=== PATIENT | female | born 1940 | race Caucasian/White ===

== ENCOUNTER → 2016-11-09 | Day surgery (SDC) | payer MEDICARE ==
[~2016-11-09] VITALS: Ht 160 cm; Wt 68.0 kg
[~2016-11-09] MED LIST: ACIPHEX20 MG PO; AMITIZA24 MCG PO; AMITIZA8 MCG PO; AMLODIPINE BES2.5 MG PO; AMOXICILLIN500 MG PO; ARICEPT ODT5 MG PO; ARICEPT5 M1 PO; ARICEPT5 MG PO; ASPIR 8181 MG PO; ASPIRIN81 M1 PO; ATORVASTATIN CA40 M1 PO; CIPRO XR500 MG PO; CIPRO250 MG PO; CIPRO500 MG PO; CIPROFLOXACIN500 MG PO; CLARITIN10 MG PO; CLOPIDOGREL75 MG PO; COLACE100 MG PO; CRESTOR20 MG PO; DIOVAN160 M1 PO; IMDUR SA30 MG PO; IMDUR SA60 M1 PO; LEVOTHYROXIN0.075 MG PO; LEVOTHYROXINE0.05 MG PO; LOPRESSOR25 MG PO; Lopressor25 MG PO; NAMENDA1 TAB PO; NAMENDA10 MG PO; NORVASC2.5 MG PO; OSCAL,OYSTER S500 MG PO; OYSTER SHELL C500 M2 PO; OYSTER SHELL CA1 T10 PO; PERCOCET 325 MG1 TA2 PO; PLAVIX75 MG PO; PRILOSEC20 MG PO; SYNTHROID,LEVO50 MCG PO; ULTRAM50 MG PO; VIBRAMYCIN100 MG PO; VITAMIN D50000 I2 PO; ZITHROMAX Z PA250 MG PO; ZOFRAN ODT4 MG PO; ZOFRAN4 MG PO; [UNRECOGNIZED DRUG - REMARK]
--- NOTE | ~2016-11-09 | PROC NOTE ---
[place], [place] PROCEDURE NOTE NAME: KENDRA RICE [facility] #: [id number] UNIT #: [id number] ROOM: DOCTOR: HILTON JENKINS MD BIRTHDATE: [birth year] DOS: 11/09/2016 PREOPERATIVE DIAGNOSES: Left lower quadrant pain, constipation. POSTOPERATIVE DIAGNOSIS: Sigmoid diverticulosis. PROCEDURE: Flexible sigmoidoscopy. ENDOSCOPIST: Hilton Jenkins MD ANESTHESIA: MAC. GLOBAL IMPLEMENTATION MANAGER: MS3. INDICATIONS: This is a 76-year-old lady who has been having left lower quadrant pain and constipation for approximately 3 weeks. Despite being on a course or MiraLax, the constipation has not been relieved in a significant that manner. It was decided to take the patient to the endoscopy suite for colonoscopy. The procedure and its complications were explained to the patient's son in detail preoperatively. Complications that were discussed included but were not limited to, bleeding, colon perforation, and prolonged pain. He agreed for her to proceed. DESCRIPTION OF PROCEDURE: After identifying the patient, the patient was brought to the endoscopy suite and placed in the left lateral position. After time-out procedure was called, IV sedation was administered by the anesthesia team and a digital rectal exam was performed, which was within normal limits. At this point, an adult colonoscope was introduced into the anal canal and advanced sequentially into the rectum and to the sigmoid colon approximately up to 20-25 cm from the anal verge. Despite multiple attempts, the colonoscope could not be advanced beyond this point. At this area though I did see some diverticula, but no evidence of any malignancy or any kind of masses or strictures that could be visualized between the anal canal and the 20 cm from the anal verge area in the sigmoid colon. Also, of note is that during the procedure, the patient did have a bout of emesis for which she needed suctioning and a Trendelenburg position that was handled by the anesthesia team and therefore, I could not place the patient in supine position to continue with the examination. At this point, the scope was withdrawn and the patient was taken to the recovery room in stable fashion. There were no complications from the colonoscopy/sigmoidoscopy procedure. The patient tolerated the procedure well. Based on these findings, the patient is going to need a CAT scan with rectal and IV contrast in order to better delineate the anatomy. I spoke with the patient's son in detail about this and he agrees to proceed. I will discuss these findings with the patient's son and the patient herself in my office in a couple of weeks. [place], [place] PROCEDURE NOTE NAME: KENDRA RICE UNIT #: [id number] ROOM: DOCTOR: HILTON JENKINS MD BIRTHDATE: [birth year] Hilton Jenkins MD CM:PROCNOTE:PROCEDURE NOTE [id number] HILTON JENKINS MD
[2016-11-09 07:24] LABS: BASO # 0.1 10*3/uL (0.0-0.1); BASO % 0.9 % (0.0-1.0); EOS # 0.2 10*3/uL (0.0-0.4); EOS % 3.2 % (1.0-4.0); HEMOGLOBIN 13.1 g/dl (12.0-16.0); LYMPH # 2.1 10*3/uL (1.3-4.4); LYMPH % 27.8 % (27.0-41.0); MEAN CELL VOLUME 90.9 fl (81.0-99.0); MEAN CORPUSCULAR HGB 30.5 pg (27.0-31.0); MEAN CORPUSCULAR HGB CONC 33.6 g/dl (33.0-37.0); MEAN PLATELET VOLUME 9.5 fl (9.6-12.3); MONO # 0.5 10*3/uL (0.1-1.0); NEUT # 4.5 10*3/uL (2.3-7.9); NEUT % 60.7 % (47.0-73.0); PLATELET COUNT AUTOMATED 238 10*3/uL (130-400); RED BLOOD COUNT 4.29 10*6/uL (4.10-5.10); RED CELL DISTRI WIDTH 12.7 % (0-14.5); WHITE BLOOD COUNT 7.5 10*3/uL (4.8-10.8)
[2016-11-09 07:36] LABS: POTASSIUM 3.8 mmol/L (3.5-5.1)
[2016-11-09 08:50] VITALS: BP 100/68
[2016-11-09 10:40] VITALS: BP 118/56
[2016-11-09 10:55] VITALS: BP 94/66
[2016-11-09 11:10] VITALS: BP 149/69
== END | disposition home or self-care (01) ==
LOC: SDC 03:06
PROVIDERS: Surgery
DX: K57.30 Diverticulosis of large intestine without perforation or abscess without bleeding (principal); I10 Essential (primary) hypertension; I25.10 Atherosclerotic heart disease of native coronary artery without angina pectoris; Z86.73 Personal history of transient ischemic attack (TIA), and cerebral infarction without residual deficits; F41.9 Anxiety disorder, unspecified; E03.9 Hypothyroidism, unspecified; K21.9 Gastro-esophageal reflux disease without esophagitis; Z95.818 Presence of other cardiac implants and grafts; Z95.1 Presence of aortocoronary bypass graft

== ENCOUNTER → 2016-11-15 | Outpatient (CLI) | payer MEDICARE | END | disposition home or self-care (01) | LOC: CT 12:59 | DX: K56.69 Other intestinal obstruction (principal); K59.00 Constipation, unspecified; K57.30 Diverticulosis of large intestine without perforation or abscess without bleeding; R10.9 Unspecified abdominal pain; R10.31 Right lower quadrant pain; R19.7 Diarrhea, unspecified; Z90.49 Acquired absence of other specified parts of digestive tract ==

== ENCOUNTER 2017-05-07 19:36 | Inpatient (IN) | payer MEDICARE ==
[~2017-05-07] VITALS: Ht 157.4 cm; Wt 67.3 kg
[2017-05-07 20:03] VITALS: BP 125/61
[2017-05-07 20:25] LABS: BILIRUBIN NEGATIVE (NEGATIVE); BLOOD 2+ (NEGATIVE); CLARITY CLEAR (CLEAR); COLOR YELLOW (YELLOW); GLUCOSE NEGATIVE (NEGATIVE); KETONE NEGATIVE (NEGATIVE); LEUKO ESTERASE 1+ (NEGATIVE); NITRITE NEGATIVE (NEGATIVE); PH 5.5 (5.0-9.0); PROTEIN NEGATIVE (NEGATIVE); SPECIFIC GRAVITY <= 1.005 (1.005-1.030); UROBILINOGEN 0.2 E.U./dl (0.2-1.0)
[2017-05-07 20:39] LABS: BACTERIA TRACE; URINE REFLEX COMMENT YES (NO)
[2017-05-07 21:07] LABS: BASO # 0.1 10*3/uL (0.0-0.1); BASO % 0.7 % (0.0-1.0); EOS # 0.3 10*3/uL (0.0-0.4); EOS % 4.2 % (1.0-4.0); HEMATOCRIT 33.8 % (37.0-47.0); HEMOGLOBIN 11.4 g/dl (12.0-16.0); LYMPH # 2.7 10*3/uL (1.3-4.4); LYMPH % 32.8 % (27.0-41.0); MEAN CELL VOLUME 89.9 fl (81.0-99.0); MEAN CORPUSCULAR HGB 30.3 pg (27.0-31.0); MEAN CORPUSCULAR HGB CONC 33.7 g/dl (33.0-37.0); MEAN PLATELET VOLUME 9.5 fl (9.6-12.3); MONO # 0.7 10*3/uL (0.1-1.0); NEUT # 4.4 10*3/uL (2.3-7.9); NEUT % 54.2 % (47.0-73.0); PLATELET COUNT AUTOMATED 193 10*3/uL (130-400); RED BLOOD COUNT 3.76 10*6/uL (4.10-5.10); RED CELL DISTRI WIDTH 13.2 % (0-14.5); WHITE BLOOD COUNT 8.1 10*3/uL (4.8-10.8)
[2017-05-07 21:21] LABS: ALBUMIN 3.4 gm/dl (3.1-4.5); ALKALINE PHOSPHATASE 61 U/L (45-117); BILIRUBIN, TOTAL 0.4 mg/dl (0.2-1.0); BUN 29 mg/dl (7-24); CARBON DIOXIDE 27 mmol/L (21-32); CHLORIDE 101 mmol/L (98-107); EST GLOM FILT AFRICAN AMERICAN 41 ml/min; GLUCOSE 125 mg/dL (65-99); MAGNESIUM 2.2 mg/dL (1.5-2.1); POTASSIUM 3.6 mmol/L (3.5-5.1); SGOT/AST 14 IU/L (3-35); SGPT/ALT 18 U/L (12-78); SODIUM 140 mmol/L (136-145); TOTAL PROTEIN 6.5 gm/dL (6.4-8.2)
[2017-05-07 21:22] LABS: C-REACTIVE PROTEIN < 0.29 MG/DL (0-0.3)
[2017-05-08 00:50] VITALS: BP 135/67
[2017-05-08 01:00] VITALS: BP 135/67
[2017-05-08 06:41] LABS: BASO # 0.1 10*3/uL (0.0-0.1); BASO % 0.7 % (0.0-1.0); EOS # 0.3 10*3/uL (0.0-0.4); EOS % 3.6 % (1.0-4.0); HEMATOCRIT 33.7 % (37.0-47.0); HEMOGLOBIN 11.3 g/dl (12.0-16.0); LYMPH # 2.4 10*3/uL (1.3-4.4); LYMPH % 35.4 % (27.0-41.0); MEAN CELL VOLUME 91.1 fl (81.0-99.0); MEAN CORPUSCULAR HGB 30.5 pg (27.0-31.0); MEAN CORPUSCULAR HGB CONC 33.5 g/dl (33.0-37.0); MEAN PLATELET VOLUME 9.6 fl (9.6-12.3); MONO # 0.6 10*3/uL (0.1-1.0); NEUT # 3.5 10*3/uL (2.3-7.9); NEUT % 51.2 % (47.0-73.0); PLATELET COUNT AUTOMATED 182 10*3/uL (130-400); RED CELL DISTRI WIDTH 13.2 % (0-14.5); WHITE BLOOD COUNT 6.9 10*3/uL (4.8-10.8)
[2017-05-08 07:18] LABS: FREE T4 0.96 ng/dl (0.76-1.46); MAGNESIUM 2.7 mg/dL (1.5-2.1); POTASSIUM 3.6 mmol/L (3.5-5.1)
[2017-05-08 07:24] LABS: THYROID STIM HORMONE (HS) 3.48 uIU/ml (0.358-4.75)
[2017-05-08 07:50] LABS: VITAMIN D, 25-HYDROXY 36.8 ng/mL (30-100)
[2017-05-08 07:51] LABS: FOLIC ACID 13.9 ng/mL (>5.38)
[2017-05-08 07:55] LABS: PROTHROMBIN TIME 10.8 SECONDS (9.0-12.4)
[2017-05-08 08:00] VITALS: BP 110/60
[2017-05-08 12:00] VITALS: BP 109/55
[2017-05-08 16:00] VITALS: BP 109/69
[2017-05-08 20:00] VITALS: BP 119/56
[2017-05-09] VITALS: BP 118/50
[2017-05-09 07:10] LABS: BASO # 0.1 10*3/uL (0.0-0.1); BASO % 0.9 % (0.0-1.0); EOS # 0.3 10*3/uL (0.0-0.4); EOS % 5.7 % (1.0-4.0); HEMATOCRIT 37.5 % (37.0-47.0); HEMOGLOBIN 12.3 g/dl (12.0-16.0); LYMPH # 1.8 10*3/uL (1.3-4.4); LYMPH % 30.4 % (27.0-41.0); MEAN CORPUSCULAR HGB 29.9 pg (27.0-31.0); MEAN CORPUSCULAR HGB CONC 32.8 g/dl (33.0-37.0); MEAN PLATELET VOLUME 9.5 fl (9.6-12.3); MONO # 0.4 10*3/uL (0.1-1.0); MONO % 7.4 % (3.0-9.0); NEUT # 3.2 10*3/uL (2.3-7.9); NEUT % 55.3 % (47.0-73.0); PLATELET COUNT AUTOMATED 173 10*3/uL (130-400); RED BLOOD COUNT 4.12 10*6/uL (4.10-5.10); RED CELL DISTRI WIDTH 13.3 % (0-14.5); WHITE BLOOD COUNT 5.8 10*3/uL (4.8-10.8)
[2017-05-09 07:44] LABS: POTASSIUM 3.8 mmol/L (3.5-5.1)
[2017-05-09 08:00] VITALS: BP 101/52
[2017-05-09 12:00] VITALS: BP 114/53
[2017-05-09 16:00] VITALS: BP 140/62
[2017-05-09 20:00] VITALS: BP 120/75
[2017-05-10] VITALS: BP 122/72
[2017-05-10 06:47] LABS: BASO % 0.6 % (0.0-1.0); EOS # 0.3 10*3/uL (0.0-0.4); HEMATOCRIT 34.8 % (37.0-47.0); HEMOGLOBIN 11.7 g/dl (12.0-16.0); LYMPH # 2.2 10*3/uL (1.3-4.4); LYMPH % 35.3 % (27.0-41.0); MEAN CELL VOLUME 91.6 fl (81.0-99.0); MEAN CORPUSCULAR HGB 30.8 pg (27.0-31.0); MEAN CORPUSCULAR HGB CONC 33.6 g/dl (33.0-37.0); MEAN PLATELET VOLUME 9.6 fl (9.6-12.3); MONO # 0.5 10*3/uL (0.1-1.0); MONO % 8.3 % (3.0-9.0); NEUT # 3.2 10*3/uL (2.3-7.9); NEUT % 50.6 % (47.0-73.0); PLATELET COUNT AUTOMATED 182 10*3/uL (130-400); RED CELL DISTRI WIDTH 13.2 % (0-14.5); WHITE BLOOD COUNT 6.2 10*3/uL (4.8-10.8)
[2017-05-10 08:00] VITALS: BP 149/75
[2017-05-10 12:00] VITALS: BP 117/82
[2017-05-10 16:00] VITALS: BP 124/67
[2017-05-10 20:00] VITALS: BP 165/64
[2017-05-11] VITALS: BP 111/54
[2017-05-11 08:00] VITALS: BP 119/67
== END 2017-05-11 11:37 | disposition other institution (70) | DRG 689 ==
LOC: ED 19:36 → EDHOLD 05-08 00:21 → 4E 05-08 00:21
PROVIDERS: Emergency Medicine Emergency Medical Services; Family Medicine; Hospitalist
DX: N30.01 Acute cystitis with hematuria (principal); N17.0 Acute kidney failure with tubular necrosis; F03.91 Unspecified dementia, unspecified severity, with behavioral disturbance; N18.3 Chronic kidney disease, stage 3 (moderate); D64.9 Anemia, unspecified; R73.9 Hyperglycemia, unspecified; E83.41 Hypermagnesemia; E86.0 Dehydration; E74.39 Other disorders of intestinal carbohydrate absorption; I12.9 Hypertensive chronic kidney disease with stage 1 through stage 4 chronic kidney disease, or unspecified chronic kidney disease; K59.00 Constipation, unspecified; I25.10 Atherosclerotic heart disease of native coronary artery without angina pectoris; E78.5 Hyperlipidemia, unspecified; I25.2 Old myocardial infarction; E03.9 Hypothyroidism, unspecified; M06.9 Rheumatoid arthritis, unspecified; Z90.49 Acquired absence of other specified parts of digestive tract; Z90.710 Acquired absence of both cervix and uterus; Z95.1 Presence of aortocoronary bypass graft; Z95.5 Presence of coronary angioplasty implant and graft; Z91.041 Radiographic dye allergy status; Z91.013 Allergy to seafood; Z81.1 Family history of alcohol abuse and dependence; Z81.2 Family history of tobacco abuse and dependence; Z82.49 Family history of ischemic heart disease and other diseases of the circulatory system; Z82.3 Family history of stroke

== ENCOUNTER 2017-07-02 12:19 | Emergency (ER) | payer MEDICARE ==
[~2017-07-02] VITALS: Wt 68.0 kg
[2017-07-02 13:32] LABS: BASO # 0.1 10*3/uL (0.0-0.1); BASO % 0.6 % (0.0-1.0); EOS # 0.3 10*3/uL (0.0-0.4); EOS % 3.1 % (1.0-4.0); HEMATOCRIT 37.5 % (37.0-47.0); HEMOGLOBIN 12.5 g/dl (12.0-16.0); LYMPH # 2.8 10*3/uL (1.3-4.4); MEAN CELL VOLUME 90.4 fl (81.0-99.0); MEAN CORPUSCULAR HGB 30.1 pg (27.0-31.0); MEAN CORPUSCULAR HGB CONC 33.3 g/dl (33.0-37.0); MEAN PLATELET VOLUME 9.2 fl (9.6-12.3); MONO # 0.8 10*3/uL (0.1-1.0); MONO % 7.3 % (3.0-9.0); NEUT # 6.8 10*3/uL (2.3-7.9); NEUT % 62.7 % (47.0-73.0); PLATELET COUNT AUTOMATED 224 10*3/uL (130-400); RED BLOOD COUNT 4.15 10*6/uL (4.10-5.10); RED CELL DISTRI WIDTH 13.1 % (0-14.5); WHITE BLOOD COUNT 10.8 10*3/uL (4.8-10.8)
[2017-07-02 13:50] LABS: ALBUMIN 3.5 gm/dl (3.1-4.5); BUN 19 mg/dl (7-24); CHLORIDE 98 mmol/L (98-107); MAGNESIUM 2.2 mg/dL (1.5-2.1); POTASSIUM 4.4 mmol/L (3.5-5.1); SGOT/AST 15 IU/L (3-35); SGPT/ALT 21 U/L (12-78); SODIUM 136 mmol/L (136-145); TOTAL PROTEIN 6.9 gm/dL (6.4-8.2)
[2017-07-02 13:53] LABS: ALKALINE PHOSPHATASE 67 U/L (45-117); CKMB 1.2 ng/ml (0.5-3.6); CPK 68 U/L (26-192); TROPONIN I < 0.015 ng/ml (<0.045)
[2017-07-02] MEDS ORDERED: PREDNISONE10 MG PO (14:07)
[2017-07-02] MEDS ORDERED: DOXYCYCLINE100 M3 PO (14:07)
[2017-07-02] MEDS ORDERED: PROVENTIL HFA6.7 GM INH (14:07)
== END 2017-07-02 14:32 | disposition home or self-care (01) ==
LOC: ED 12:19
PROVIDERS: Internal Medicine
DX: J20.9 Acute bronchitis, unspecified (principal); I12.9 Hypertensive chronic kidney disease with stage 1 through stage 4 chronic kidney disease, or unspecified chronic kidney disease; N18.3 Chronic kidney disease, stage 3 (moderate); E78.5 Hyperlipidemia, unspecified; I25.2 Old myocardial infarction; E03.9 Hypothyroidism, unspecified; M06.9 Rheumatoid arthritis, unspecified; Z91.041 Radiographic dye allergy status; Z91.013 Allergy to seafood; Z79.82 Long term (current) use of aspirin; Z79.899 Other long term (current) drug therapy

== ENCOUNTER 2017-07-05 11:31 | Inpatient (IN) | payer MEDICARE ==
[~2017-07-05] VITALS: Ht 162.5 cm; Wt 63.7 kg
--- NOTE | ~2017-07-05 | CON ---
[place], [place] REPORT OF CONSULTATION NAME: [facility] [id number] UNIT #: [id number] ROOM: 408 DOCTOR: MARTHA RIVERA MD BIRTHDATE: [birth year] DOS: 07/06/2017 HISTORY OF PRESENT ILLNESS: This is a 77-year-old -Congol[place] woman with a history of coronary artery disease. A long time ago, she had coronary artery bypass graft surgery done and Dr. Smith did a heart catheterization in 11/2014, which demonstrated a totally occluded LAD with an ectatic YOU graft to this artery: A circumflex had 95% of the total occlusion with a patent vein graft to one of its branches. The RCA graft was totally occluded, but the stent in the RCA was patent with only 30% stenosis, i.e., RCA was patent. She had an echocardiogram. At that time, LV ejection fraction was 65%. She had an echocardiogram in this hospital last year, which showed an LV ejection fraction of 70%. She has essential hypertension, hyperlipidemia, hypothyroidism and chronic anemia and rheumatoid arthritis. She has some degree of dementia and carries a diagnosis of stage 3 chronic kidney disease. She has had appendectomy, tonsillectomy and adenoidectomy in the remote past. She lives at home with her son and has difficulty walking because of hip pain, but does ambulate reasonably well. She had anterior chest pain before she came to the hospital. She is unable to give me any details about it. She does not know what she was doing at that time, but she did not sweat nor with she short of breath with it. She did not pass out. She does not have any chest pain now nor does she have any breathing problems. HOME MEDICATIONS: Include amlodipine 2.5 mg daily, aspirin 81 daily, clopidogrel 75 mg daily, doxycycline 100 mg b.i.d., levothyroxine 75 mcg daily, metoprolol tartrate 25 mg daily, prednisone 10 mg daily and 20 daily and valsartan 160 mg. SOCIAL HISTORY: She does not smoke nor does she drink alcoholic beverages. PHYSICAL EXAMINATION: GENERAL: Reveals the patient who is alert. She converses reasonably well. She is very comfortable. There is no jaundice or cyanosis. There is no thyromegaly or finger clubbing. VITAL SIGNS: Pulse is 52 and regular, blood pressure 117/73. NECK: Normal JVP. AJR is negative. There is no carotid bruit. HEART: There is no cardiomegaly. Auscultation did not reveal any murmurs or rubs. She had no edema in the lower extremities. Pedal pulses were easily appreciated. RESPIRATORY: She was not tachypneic and now the auscultation revealed a few rhonchi in the right lower zone. There was no chest wall tenderness. ABDOMEN: Supple, nontender. No bruit was present and liver was not enlarged. IMAGING: Two ECGs have shown normal sinus rhythm and a normal pattern. Monitor has shown sinus bradycardia with rate sometimes in the high 40s, but mostly in the 50s. LABORATORY DATA: Troponin I level has been less than 0.015. Hemoglobin 13.2 g/dL. Sodium 136, potassium 4.4, magnesium 2.2. [place], [place] REPORT OF CONSULTATION NAME: KENDRA RICE UNIT #: [id number] ROOM: 408 DOCTOR: MARTHA RIVERA MD BIRTHDATE: [birth year] IMPRESSION: This patient with known coronary artery disease and coronary artery bypass graft surgery, has normal LV systolic function. She had chest pain and has ruled out for acute myocardial infarction and the nature of this pain is not clear because the patient is unable to give much information. I walked her in the hallway for quite a distance and she had no breathing difficulty and did not have any chest pain or pressure or jaw discomfort, but her right hip was painful. I did my recommendation. I do not feel she needs any cardiac workup and she may be discharged home. I thank you on behalf of Dr. Smith. MARTHA RIVERA MD CM:CONSTR:REPORT OF CONSULTATION 2 07/07/17 0138 interface
[~2017-07-05 11:31] MED LIST changes: +DOXYCYCLINE100 M3 PO; +PREDNISONE10 MG PO; +PROVENTIL HFA6.7 GM INH
[2017-07-05 11:43] VITALS: BP 177/81
[2017-07-05 12:12] LABS: BASO % 0.1 % (0.0-1.0); HEMATOCRIT 39.4 % (37.0-47.0); HEMOGLOBIN 13.2 g/dl (12.0-16.0); LYMPH # 1.4 10*3/uL (1.3-4.4); LYMPH % 9.1 % (27.0-41.0); MEAN CELL VOLUME 89.3 fl (81.0-99.0); MEAN CORPUSCULAR HGB 29.9 pg (27.0-31.0); MEAN CORPUSCULAR HGB CONC 33.5 g/dl (33.0-37.0); MEAN PLATELET VOLUME 9.2 fl (9.6-12.3); MONO # 0.9 10*3/uL (0.1-1.0); MONO % 5.6 % (3.0-9.0); NEUT % 84.3 % (47.0-73.0); PLATELET COUNT AUTOMATED 257 10*3/uL (130-400); RED BLOOD COUNT 4.41 10*6/uL (4.10-5.10); WHITE BLOOD COUNT 15.4 10*3/uL (4.8-10.8)
[2017-07-05 12:20] LABS: ACT PARTIAL THROMBO TIME 23.5 SECONDS (20.8-31.5)
[2017-07-05 12:28] LABS: ALBUMIN 3.8 gm/dl (3.1-4.5); ALKALINE PHOSPHATASE 61 U/L (45-117); BUN 24 mg/dl (7-24); CHLORIDE 100 mmol/L (98-107); CREATININE 1.12 mg/dL (0.55-1.02); MAGNESIUM 2.5 mg/dL (1.5-2.1); POTASSIUM 4.5 mmol/L (3.5-5.1); SGOT/AST 22 IU/L (3-35); SGPT/ALT 21 U/L (12-78); SODIUM 131 mmol/L (136-145); TOTAL PROTEIN 7.6 gm/dL (6.4-8.2)
[2017-07-05 12:31] LABS: TROPONIN I < 0.015 ng/ml (<0.045)
[2017-07-05 12:48] VITALS: BP 134/68
[2017-07-05 13:25] VITALS: BP 118/69
[2017-07-05 16:00] VITALS: BP 156/70
[2017-07-05 20:00] VITALS: BP 99/77
[2017-07-06] VITALS: BP 117/73
[2017-07-06 07:06] LABS: BASO % 0.2 % (0.0-1.0); EOS # 0.2 10*3/uL (0.0-0.4); EOS % 1.8 % (1.0-4.0); HEMATOCRIT 35.5 % (37.0-47.0); HEMOGLOBIN 12.1 g/dl (12.0-16.0); LYMPH % 29.1 % (27.0-41.0); MEAN CORPUSCULAR HGB 30.3 pg (27.0-31.0); MEAN CORPUSCULAR HGB CONC 34.1 g/dl (33.0-37.0); MEAN PLATELET VOLUME 9.2 fl (9.6-12.3); MONO # 0.9 10*3/uL (0.1-1.0); MONO % 9.1 % (3.0-9.0); NEUT % 58.9 % (47.0-73.0); PLATELET COUNT AUTOMATED 201 10*3/uL (130-400); RED BLOOD COUNT 3.99 10*6/uL (4.10-5.10); WHITE BLOOD COUNT 10.2 10*3/uL (4.8-10.8)
[2017-07-06 07:19] LABS: CHLORIDE 103 mmol/L (98-107); CHOLESTEROL 131 mg/dL (<200); HDL CHOLESTEROL 58 mg/dl (40-60); LDL CHOLESTEROL 47 mg/dL (9-159); MAGNESIUM 2.2 mg/dL (1.5-2.1); PHOSPHOROUS 2.6 mg/dL (2.5-4.9); POTASSIUM 3.8 mmol/L (3.5-5.1); SODIUM 134 mmol/L (136-145); TRIGLYCERIDES 132 mg/dl (<150); VLDL CHOLESTEROL 26 mg/dL (6-40)
[2017-07-06 07:38] LABS: BUN 24 mg/dl (7-24)
[2017-07-06 08:00] VITALS: BP 138/66
[2017-07-06 12:00] VITALS: BP 139/62
== END 2017-07-06 14:13 | disposition home or self-care (01) | DRG 205 ==
LOC: ED 11:31 → EDHOLD 13:06 → 4E 13:25
PROVIDERS: Nurse Practitioner Family; Student in an Organized Health Care Education/Training Program; ADMIT Internal Medicine
DX: M94.0 Chondrocostal junction syndrome [Tietze] (principal); J18.9 Pneumonia, unspecified organism; E87.1 Hypo-osmolality and hyponatremia; F03.90 Unspecified dementia, unspecified severity, without behavioral disturbance, psychotic disturbance, mood disturbance, and anxiety; N18.3 Chronic kidney disease, stage 3 (moderate); M06.9 Rheumatoid arthritis, unspecified; E83.41 Hypermagnesemia; D64.9 Anemia, unspecified; K21.9 Gastro-esophageal reflux disease without esophagitis; I25.10 Atherosclerotic heart disease of native coronary artery without angina pectoris; I12.9 Hypertensive chronic kidney disease with stage 1 through stage 4 chronic kidney disease, or unspecified chronic kidney disease; E78.5 Hyperlipidemia, unspecified; E03.9 Hypothyroidism, unspecified; J40 Bronchitis, not specified as acute or chronic; D72.823 Leukemoid reaction; I25.2 Old myocardial infarction; Z79.02 Long term (current) use of antithrombotics/antiplatelets; Z79.82 Long term (current) use of aspirin; Z79.899 Other long term (current) drug therapy; Z91.013 Allergy to seafood; Z91.041 Radiographic dye allergy status; Z95.1 Presence of aortocoronary bypass graft; Z90.49 Acquired absence of other specified parts of digestive tract; Z90.710 Acquired absence of both cervix and uterus; Z95.5 Presence of coronary angioplasty implant and graft; Z81.2 Family history of tobacco abuse and dependence; Z82.3 Family history of stroke; Z82.49 Family history of ischemic heart disease and other diseases of the circulatory system; Z81.1 Family history of alcohol abuse and dependence

== ENCOUNTER 2017-08-16 13:41 | Inpatient (IN) | payer MEDICARE ==
--- NOTE | 2017-08-15 21:07 | NUR ---
PRN TYLENOL GIVEN FOR PT COMPLAINTS OF A HEADACHE. CALL LIGHT WITHIN REACH, WILL MONITOR
[~2017-08-16] VITALS: Ht 160 cm; Wt 66.3 kg
[2017-08-16 13:51] VITALS: BP 136/69
[2017-08-16 14:11] VITALS: BP 126/67
[2017-08-16 14:37] LABS: BASO # 0.1 10*3/uL (0.0-0.1); BASO % 0.5 % (0.0-1.0); EOS # 0.2 10*3/uL (0.0-0.4); EOS % 1.6 % (1.0-4.0); HEMATOCRIT 38.9 % (37.0-47.0); HEMOGLOBIN 13.3 g/dl (12.0-16.0); LYMPH # 3.7 10*3/uL (1.3-4.4); LYMPH % 24.4 % (27.0-41.0); MEAN CELL VOLUME 90.3 fl (81.0-99.0); MEAN CORPUSCULAR HGB 30.9 pg (27.0-31.0); MEAN CORPUSCULAR HGB CONC 34.2 g/dl (33.0-37.0); MONO # 1.3 10*3/uL (0.1-1.0); MONO % 8.6 % (3.0-9.0); NEUT # 9.8 10*3/uL (2.3-7.9); NEUT % 63.8 % (47.0-73.0); PLATELET COUNT AUTOMATED 270 10*3/uL (130-400); RED BLOOD COUNT 4.31 10*6/uL (4.10-5.10); RED CELL DISTRI WIDTH 13.4 % (0-14.5); WHITE BLOOD COUNT 15.3 10*3/uL (4.8-10.8)
[2017-08-16 14:46] LABS: ACT PARTIAL THROMBO TIME 22.9 SECONDS (20.8-31.5)
[2017-08-16 14:53] LABS: ALBUMIN 3.5 gm/dl (3.1-4.5); ALKALINE PHOSPHATASE 71 U/L (45-117); BUN 26 mg/dl (7-24); CHLORIDE 102 mmol/L (98-107); CREATININE 1.35 mg/dL (0.55-1.02); MAGNESIUM 3.1 mg/dL (1.5-2.1); POTASSIUM 3.8 mmol/L (3.5-5.1); SGOT/AST 13 IU/L (3-35); SGPT/ALT 21 U/L (12-78); SODIUM 138 mmol/L (136-145)
[2017-08-16 14:55] VITALS: BP 109/48
[2017-08-16 14:55] LABS: TROPONIN I < 0.015 ng/ml (<0.045)
--- NOTE | 2017-08-16 15:06 | NUR ---
REPORT GIVEN TO RAJ RAYO AT THIS TIME.
--- NOTE | 2017-08-16 15:31 | NUR ---
PATIENT REPORT GIVEN TO RAMÍREZ RAYO ON 4TH FLOOR. PATIENT TAKEN TO 4TH FLOOR BY RAJ RAYO.
[2017-08-16 16:00] VITALS: BP 100/70
--- NOTE | 2017-08-16 16:00 | NUR ---
A 77, admitted to 4E, under the services of COLLETTE Gonzalez DO with a diagnosis of RENAL INSUFF. Chief complaint is CHEST PAIN. Patient arrived via stretcher from ER. Monitor applied. Initial assessment completed. Vital signs taken and recorded. COLLETTE GONZALEZ DO notified of admission to the unit. Orders received. See assessment for past medical history, medications and allergies. Patient and/or family oriented to unit. [facility] visitation policy reviewed. Clothing/patient valuable form completed. [employer]
[2017-08-16] MEDS ORDERED: LOPRESSOR25 MG PO (16:57)
--- NOTE | 2017-08-16 16:59 | NUR ---
MEDS VERIFIED WITH [facility] AND MED REC UPDATED.
--- NOTE | 2017-08-16 17:02 | NUR ---
DR YUNG NOTIFIED OF CONSULT. STATES HE IS OUT OF TOWN THE WEEKEND AND IF PT HAS ANY PROBLEMS HAVE HER TRANSFERRED TO [facility].
[2017-08-16 20:00] VITALS: BP 114/98
--- NOTE | 2017-08-16 21:00 | NUR ---
DR. MCGHEE CALLED AT THIS TIME FOR PT COMPLAINTS OF INDIGESTION. DR. MCGHEE STATED HE WOULD PUT IN AN ORDER FOR [facility]
--- NOTE | 2017-08-16 21:30 | NUR ---
DR. MCGHEE CALLED AT THIS TIME FOR PT COMPLAINTS OF SLEEPLESSNESS AND PATIENT VERY RESTLESS AND ANXIOUS. DR. MCGHEE STATED HE WOULD PUT IN A ONE TIME ORDER OF [facility]
--- NOTE | 2017-08-16 22:00 | NUR ---
PRN TYLENOL EFFECTIVE PER PT
[2017-08-17] VITALS: BP 119/62
[2017-08-17 06:06] LABS: BASO # 0.1 10*3/uL (0.0-0.1); BASO % 0.8 % (0.0-1.0); EOS # 0.4 10*3/uL (0.0-0.4); EOS % 4.3 % (1.0-4.0); HEMATOCRIT 35.2 % (37.0-47.0); LYMPH # 3.1 10*3/uL (1.3-4.4); LYMPH % 31.3 % (27.0-41.0); MEAN CELL VOLUME 89.6 fl (81.0-99.0); MEAN CORPUSCULAR HGB 30.5 pg (27.0-31.0); MEAN CORPUSCULAR HGB CONC 34.1 g/dl (33.0-37.0); MEAN PLATELET VOLUME 8.9 fl (9.6-12.3); MONO # 0.7 10*3/uL (0.1-1.0); MONO % 7.6 % (3.0-9.0); NEUT # 5.4 10*3/uL (2.3-7.9); NEUT % 55.1 % (47.0-73.0); PLATELET COUNT AUTOMATED 219 10*3/uL (130-400); RED BLOOD COUNT 3.93 10*6/uL (4.10-5.10); RED CELL DISTRI WIDTH 13.5 % (0-14.5); WHITE BLOOD COUNT 9.8 10*3/uL (4.8-10.8)
[2017-08-17 06:48] LABS: ALBUMIN 3.3 gm/dl (3.1-4.5); MAGNESIUM 2.9 mg/dL (1.5-2.1); PHOSPHOROUS 3.2 mg/dL (2.5-4.9); POTASSIUM 3.9 mmol/L (3.5-5.1); TOTAL PROTEIN 6.3 gm/dL (6.4-8.2)
[2017-08-17 06:50] LABS: CREATININE 1.13 mg/dL (0.55-1.02)
[2017-08-17 08:00] VITALS: BP 129/64
[2017-08-17] MEDS ORDERED: PANTOPRAZOLE SO40 MG PO (11:21)
--- NOTE | 2017-08-17 12:20 | NUR ---
PT DISCHARGED AT THIS TIME. IV REMOVED AND PRESSURE DRESSING APPLIED. HEART MONITOR RETURNED TO FLOOR. VERBALIZED UNDERSTANDING OF DISCHARGE INSTRUCTIONS.
== END 2017-08-17 12:20 | disposition home or self-care (01) | DRG 392 ==
LOC: ED 13:41 → EDHOLD 15:10 → 4E 15:16
PROVIDERS: Emergency Medicine; Registered Nurse; ADMIT Internal Medicine
DX: K21.9 Gastro-esophageal reflux disease without esophagitis (principal); R65.10 Systemic inflammatory response syndrome (SIRS) of non-infectious origin without acute organ dysfunction; F03.90 Unspecified dementia, unspecified severity, without behavioral disturbance, psychotic disturbance, mood disturbance, and anxiety; N18.3 Chronic kidney disease, stage 3 (moderate); M06.9 Rheumatoid arthritis, unspecified; I12.9 Hypertensive chronic kidney disease with stage 1 through stage 4 chronic kidney disease, or unspecified chronic kidney disease; E03.9 Hypothyroidism, unspecified; E78.5 Hyperlipidemia, unspecified; I25.10 Atherosclerotic heart disease of native coronary artery without angina pectoris; Z66 Do not resuscitate; Z51.5 Encounter for palliative care; Z95.1 Presence of aortocoronary bypass graft; Z95.5 Presence of coronary angioplasty implant and graft; Z91.041 Radiographic dye allergy status; Z88.8 Allergy status to other drugs, medicaments and biological substances; Z79.899 Other long term (current) drug therapy; Z90.89 Acquired absence of other organs; Z90.49 Acquired absence of other specified parts of digestive tract; Z82.49 Family history of ischemic heart disease and other diseases of the circulatory system; Z82.3 Family history of stroke; I25.2 Old myocardial infarction; Z90.710 Acquired absence of both cervix and uterus; Z96.649 Presence of unspecified artificial hip joint; Z79.82 Long term (current) use of aspirin

== ENCOUNTER → 2017-10-15 | Outpatient (CLI) | payer MEDICARE ==
[~2017-10-15] MED LIST changes: +PANTOPRAZOLE SO40 MG PO
[2017-10-15 10:08] LABS: HEMOGLOBIN 13.6 g/dl (12.0-16.0); MEAN CELL VOLUME 90.1 fl (81.0-99.0); MEAN CORPUSCULAR HGB 30.6 pg (27.0-31.0); MEAN PLATELET VOLUME 9.3 fl (9.6-12.3); RED BLOOD COUNT 4.44 10*6/uL (4.10-5.10); WHITE BLOOD COUNT 7.9 10*3/uL (4.8-10.8)
[2017-10-15 10:38] LABS: ALBUMIN 3.8 gm/dl (3.1-4.5); CREATININE 1.22 mg/dL (0.55-1.02); POTASSIUM 4.3 mmol/L (3.5-5.1); TOTAL PROTEIN 7.2 gm/dL (6.4-8.2)
[2017-10-15 10:47] LABS: THYROID STIM HORMONE (HS) 2.71 uIU/ml (0.358-4.75)
== END | disposition home or self-care (01) ==
LOC: LAB 09:39
DX: I10 Essential (primary) hypertension (principal); E03.9 Hypothyroidism, unspecified; I25.10 Atherosclerotic heart disease of native coronary artery without angina pectoris; Z98.61 Coronary angioplasty status

== ENCOUNTER 2018-02-02 20:56 | Emergency (ER) | payer MEDICARE, OTHER ==
[~2018-02-02] VITALS: Ht 162.5 cm; Wt 72.6 kg
[2018-02-02] MEDS ORDERED: ZITHROMAX250 MG PO (23:10)
[2018-02-02] MEDS ORDERED: ZOFRAN ODT4 MG SL (23:10)
== END 2018-02-02 23:36 | disposition home or self-care (01) ==
LOC: ED 20:56
DX: S46.811A Strain of other muscles, fascia and tendons at shoulder and upper arm level, right arm, initial encounter (principal); J01.10 Acute frontal sinusitis, unspecified; I12.9 Hypertensive chronic kidney disease with stage 1 through stage 4 chronic kidney disease, or unspecified chronic kidney disease; N18.3 Chronic kidney disease, stage 3 (moderate); E78.5 Hyperlipidemia, unspecified; I25.2 Old myocardial infarction; E03.9 Hypothyroidism, unspecified; M06.9 Rheumatoid arthritis, unspecified; Z95.1 Presence of aortocoronary bypass graft; Z90.49 Acquired absence of other specified parts of digestive tract; Z90.710 Acquired absence of both cervix and uterus; Z98.890 Other specified postprocedural states; Z79.82 Long term (current) use of aspirin; Z79.899 Other long term (current) drug therapy; Z91.041 Radiographic dye allergy status; Z91.013 Allergy to seafood; X50.1XXA Overexertion from prolonged static or awkward postures, initial encounter; Y93.89 Activity, other specified; Y92.89 Other specified places as the place of occurrence of the external cause; Y99.9 Unspecified external cause status

== ENCOUNTER 2018-03-06 14:09 | Inpatient (IN) | payer MEDICARE, OTHER ==
[~2018-03-06] VITALS: Ht 162.5 cm; Wt 67.7 kg
--- NOTE | ~2018-03-06 | CON ---
[place], [place] REPORT OF CONSULTATION NAME: KENDRA RICE Jaylon UNIT #: [id number] ROOM: 409 DOCTOR: AGA HEARTJULIANNA BIRTHDATE: [birth year] DOS: 03/07/2018 HISTORY OF PRESENT ILLNESS: The patient is very well known to me with a known history of coronary artery disease, dementia, previous cardiac interventions and bypass surgery. The patient was admitted with increasing shortness of breath. Most of the information is obtained from the chart. The patient is a very poor historian. She complains of some atypical chest discomfort. No acute EKG changes suggestion of myocardial injury or infarction. She had previous cardiac catheterization and cardiac-sahu, these are patent and not amenable for any intervention, mild diffuse disease and the grafts were patent. The patient denies any chest discomfort today. Hemodynamically, she is stable. PAST MEDICAL HISTORY: Significant for coronary artery bypass surgery, hypertension, hyperlipidemia, dementia, and hypothyroidism. SURGICAL HISTORY: Cholecystectomy, hysterectomy, bypass, and appendectomy. SOCIAL HISTORY: Denies any alcohol or tobacco abuse. FAMILY HISTORY: Noncontributory. ALLERGIES: IVP DYE AND IODINE. HOME MEDICATIONS: Aspirin, clopidogrel, metoprolol, rosuvastatin, and valsartan. REVIEW OF SYSTEMS: Somewhat limited because of underlying dementia. The patient with intermittent confusion, occasional chest discomfort. Denies any shortness of breath. No GI issues. No nausea or vomiting. No dysuria. PHYSICAL EXAMINATION: VITAL SIGNS: Blood pressure is 120/70. She is in sinus rhythm. HEENT: Unremarkable. NECK: Supple. No JVD. LUNGS: Clear. HEART: Sounds are regular. ABDOMEN: Soft, nontender. NEUROLOGICAL: Stable but with intermittent confusion. LABORATORY DATA: Sodium 136, potassium 4.1, creatinine is 1.2. INR is normal. Hemoglobin 13.1, hematocrit 38.5. Chest x-ray is normal, reviewed by me. IMPRESSION: The patient with known coronary artery bypass surgery, dementia, hypertension, hyperlipidemia, rheumatoid arthritis, underlying dementia. RECOMMENDATIONS: Continue the present medications. Add isosorbide mononitrate 30 mg daily for angina. We will review the echocardiogram. Continue the aspirin, Plavix, and beta blockers, and we will follow up. [place], [place] REPORT OF CONSULTATION NAME: KENDRA RICE UNIT #: [id number] ROOM: 409 DOCTOR: JULIANNA YUNG MD BIRTHDATE: [birth year] JULIANNA YUNG MD CM:CONSTR:REPORT OF CONSULTATION 1015 03/07/18 1037 interface
[~2018-03-06 14:09] MED LIST changes: +ZITHROMAX250 MG PO; +ZOFRAN ODT4 MG SL
[2018-03-06 14:11] VITALS: BP 148/60; BP 75/54
[2018-03-06 14:39] LABS: BASO # 0.1 10*3/uL (0.0-0.1); BASO % 0.8 % (0.0-1.0); EOS # 0.3 10*3/uL (0.0-0.4); EOS % 4.1 % (1.0-4.0); HEMATOCRIT 38.5 % (37.0-47.0); HEMOGLOBIN 13.1 g/dl (12.0-16.0); LYMPH # 2.4 10*3/uL (1.3-4.4); LYMPH % 33.1 % (27.0-41.0); MEAN CELL VOLUME 90.6 fl (81.0-99.0); MEAN CORPUSCULAR HGB 30.8 pg (27.0-31.0); MEAN PLATELET VOLUME 9.5 fl (9.6-12.3); MONO # 0.7 10*3/uL (0.1-1.0); MONO % 8.9 % (3.0-9.0); NEUT # 3.8 10*3/uL (2.3-7.9); NEUT % 52.8 % (47.0-73.0); PLATELET COUNT AUTOMATED 204 10*3/uL (130-400); RED BLOOD COUNT 4.25 10*6/uL (4.10-5.10); RED CELL DISTRI WIDTH 13.5 % (0-14.5); WHITE BLOOD COUNT 7.3 10*3/uL (4.8-10.8)
[2018-03-06 14:48] LABS: ACT PARTIAL THROMBO TIME 26.7 SECONDS (20.8-31.5)
[2018-03-06 14:55] LABS: ALBUMIN 3.8 gm/dl (3.1-4.5); ALKALINE PHOSPHATASE 68 U/L (45-117); BUN 26 mg/dl (7-24); CHLORIDE 102 mmol/L (98-107); CREATININE 1.29 mg/dL (0.55-1.02); POTASSIUM 4.1 mmol/L (3.5-5.1); SGOT/AST 21 IU/L (3-35); SGPT/ALT 24 U/L (12-78); SODIUM 136 mmol/L (136-145)
[2018-03-06 14:59] LABS: TROPONIN I < 0.015 ng/ml (<0.045)
[2018-03-06 15:12] VITALS: BP 121/78
[2018-03-06 15:41] VITALS: BP 121/78
[2018-03-06 15:53] VITALS: BP 151/53
[2018-03-06 20:00] VITALS: BP 130/74
[2018-03-07] VITALS: BP 132/80
[2018-03-07 06:13] LABS: BASO # 0.1 10*3/uL (0.0-0.1); BASO % 0.7 % (0.0-1.0); EOS # 0.3 10*3/uL (0.0-0.4); HEMATOCRIT 37.6 % (37.0-47.0); HEMOGLOBIN 12.3 g/dl (12.0-16.0); LYMPH # 2.5 10*3/uL (1.3-4.4); LYMPH % 28.4 % (27.0-41.0); MEAN CELL VOLUME 91.3 fl (81.0-99.0); MEAN CORPUSCULAR HGB 29.9 pg (27.0-31.0); MEAN CORPUSCULAR HGB CONC 32.7 g/dl (33.0-37.0); MEAN PLATELET VOLUME 9.6 fl (9.6-12.3); MONO # 0.6 10*3/uL (0.1-1.0); MONO % 7.1 % (3.0-9.0); NEUT # 5.3 10*3/uL (2.3-7.9); NEUT % 60.5 % (47.0-73.0); PLATELET COUNT AUTOMATED 209 10*3/uL (130-400); RED BLOOD COUNT 4.12 10*6/uL (4.10-5.10); RED CELL DISTRI WIDTH 13.2 % (0-14.5); WHITE BLOOD COUNT 8.8 10*3/uL (4.8-10.8)
[2018-03-07 06:17] LABS: ALBUMIN 3.6 gm/dl (3.1-4.5); CREATININE 1.18 mg/dL (0.55-1.02); FREE T4 0.85 ng/dl (0.76-1.46); PHOSPHOROUS 3.1 mg/dL (2.5-4.9); POTASSIUM 3.9 mmol/L (3.5-5.1); TOTAL PROTEIN 6.7 gm/dL (6.4-8.2)
[2018-03-07 06:22] LABS: THYROID STIM HORMONE (HS) 2.55 uIU/ml (0.358-4.75)
[2018-03-07 06:59] LABS: BILIRUBIN NEGATIVE (NEGATIVE); BLOOD 1+ (NEGATIVE); CLARITY CLEAR (CLEAR); COLOR YELLOW (YELLOW); GLUCOSE NEGATIVE (NEGATIVE); KETONE NEGATIVE (NEGATIVE); LEUKO ESTERASE 1+ (NEGATIVE); NITRITE NEGATIVE (NEGATIVE); SPECIFIC GRAVITY <= 1.005 (1.005-1.030); UROBILINOGEN 0.2 E.U./dl (0.2-1.0)
[2018-03-07 07:58] LABS: BACTERIA TRACE
[2018-03-07 08:00] VITALS: BP 120/60
[2018-03-07 08:17] LABS: VITAMIN D, 25-HYDROXY 31.8 ng/mL (30-100)
[2018-03-07] MEDS ORDERED: IMDUR SA30 MG PO (10:18)
[2018-03-07 12:00] VITALS: BP 98/56
== END 2018-03-07 15:30 | disposition home or self-care (01) | DRG 206 ==
LOC: ED 14:09 → 4E 15:09 → EDHOLD 15:09 → 4E 15:34
PROVIDERS: Physician Assistant; Registered Nurse
DX: M94.0 Chondrocostal junction syndrome [Tietze] (principal); M06.9 Rheumatoid arthritis, unspecified; F03.90 Unspecified dementia, unspecified severity, without behavioral disturbance, psychotic disturbance, mood disturbance, and anxiety; E03.9 Hypothyroidism, unspecified; R07.89 Other chest pain; N18.3 Chronic kidney disease, stage 3 (moderate); Z66 Do not resuscitate; I12.9 Hypertensive chronic kidney disease with stage 1 through stage 4 chronic kidney disease, or unspecified chronic kidney disease; Z96.642 Presence of left artificial hip joint; E78.5 Hyperlipidemia, unspecified; Z51.5 Encounter for palliative care; Z91.041 Radiographic dye allergy status; Z91.013 Allergy to seafood; Z79.2 Long term (current) use of antibiotics; Z79.82 Long term (current) use of aspirin; Z79.899 Other long term (current) drug therapy; Z95.1 Presence of aortocoronary bypass graft; Z90.49 Acquired absence of other specified parts of digestive tract; Z90.710 Acquired absence of both cervix and uterus; Z95.818 Presence of other cardiac implants and grafts; Z82.3 Family history of stroke; Z82.49 Family history of ischemic heart disease and other diseases of the circulatory system; Z81.2 Family history of tobacco abuse and dependence; Z81.1 Family history of alcohol abuse and dependence

== ENCOUNTER 2018-04-23 15:17 | Inpatient (IN) | payer MEDICARE, OTHER ==
[~2018-04-23] VITALS: Ht 162.6 cm; Wt 70.3 kg
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
[~2018-04-23 15:17] MED LIST changes: +CRESTOR20 M1 PO; +DIOVAN160 M2 PO; -LEVOTHYROXIN0.075 MG PO; +LEVOTHYROXINE75 MCG PO
[2018-04-23 15:23] VITALS: BP 100/57
[2018-04-23] MEDS ORDERED: DOCUSATE SODIU100 M2 PO (15:26)
[2018-04-23] MEDS ORDERED: GEODON20 M1 IM (15:30)
[2018-04-23 15:57] LABS: BILIRUBIN NEGATIVE (NEGATIVE); BLOOD 2+ (NEGATIVE); CLARITY CLEAR (CLEAR); COLOR YELLOW (YELLOW); GLUCOSE NEGATIVE (NEGATIVE); KETONE NEGATIVE (NEGATIVE); LEUKO ESTERASE NEGATIVE (NEGATIVE); NITRITE NEGATIVE (NEGATIVE); UROBILINOGEN 0.2 E.U./dl (0.2-1.0)
[2018-04-23 16:06] LABS: BACTERIA 1+
[2018-04-23 16:07] LABS: RBC 21-30 rbc/hpf (0-2)
[2018-04-23 16:51] LABS: BASO # 0.1 10*3/uL (0.0-0.1); BASO % 0.5 % (0.0-1.0); EOS # 0.2 10*3/uL (0.0-0.4); EOS % 1.9 % (1.0-4.0); HEMATOCRIT 39.5 % (37.0-47.0); HEMOGLOBIN 13.2 g/dl (12.0-16.0); LYMPH # 2.3 10*3/uL (1.3-4.4); LYMPH % 21.7 % (27.0-41.0); MEAN CELL VOLUME 90.8 fl (81.0-99.0); MEAN CORPUSCULAR HGB 30.3 pg (27.0-31.0); MEAN CORPUSCULAR HGB CONC 33.4 g/dl (33.0-37.0); MEAN PLATELET VOLUME 9.5 fl (9.6-12.3); MONO # 0.6 10*3/uL (0.1-1.0); MONO % 5.7 % (3.0-9.0); NEUT # 7.5 10*3/uL (2.3-7.9); NEUT % 69.9 % (47.0-73.0); PLATELET COUNT AUTOMATED 228 10*3/uL (130-400); RED BLOOD COUNT 4.35 10*6/uL (4.10-5.10); WHITE BLOOD COUNT 10.7 10*3/uL (4.8-10.8)
[2018-04-23 17:00] LABS: ACT PARTIAL THROMBO TIME 25.8 SECONDS (20.8-31.5)
[2018-04-23 17:08] LABS: ALBUMIN 4.1 gm/dl (3.1-4.5); ALKALINE PHOSPHATASE 77 U/L (45-117); BUN 30 mg/dl (7-24); CHLORIDE 104 mmol/L (98-107); CREATININE 1.46 mg/dL (0.55-1.02); LIPASE 157 U/L (73-393); POTASSIUM 4.1 mmol/L (3.5-5.1); SGOT/AST 18 IU/L (3-35); SGPT/ALT 21 U/L (12-78); SODIUM 137 mmol/L (136-145); TOTAL PROTEIN 7.5 gm/dL (6.4-8.2); TROPONIN I < 0.015 ng/ml (<0.045)
[2018-04-23 19:15] VITALS: BP 125/53; BP 146/66
[2018-04-23 20:00] VITALS: BP 137/57
[2018-04-23] MEDS ORDERED: NORVASC2.5 MG PO (23:44)
[2018-04-24] VITALS: BP 138/56
[2018-04-24 06:45] LABS: BASO # 0.1 10*3/uL (0.0-0.1); BASO % 0.7 % (0.0-1.0); EOS # 0.2 10*3/uL (0.0-0.4); EOS % 3.2 % (1.0-4.0); HEMATOCRIT 34.3 % (37.0-47.0); HEMOGLOBIN 11.6 g/dl (12.0-16.0); LYMPH # 2.5 10*3/uL (1.3-4.4); LYMPH % 35.8 % (27.0-41.0); MEAN CELL VOLUME 91.2 fl (81.0-99.0); MEAN CORPUSCULAR HGB 30.9 pg (27.0-31.0); MEAN CORPUSCULAR HGB CONC 33.8 g/dl (33.0-37.0); MEAN PLATELET VOLUME 9.6 fl (9.6-12.3); MONO # 0.6 10*3/uL (0.1-1.0); MONO % 8.8 % (3.0-9.0); NEUT # 3.5 10*3/uL (2.3-7.9); NEUT % 51.2 % (47.0-73.0); PLATELET COUNT AUTOMATED 187 10*3/uL (130-400); RED BLOOD COUNT 3.76 10*6/uL (4.10-5.10); RED CELL DISTRI WIDTH 13.2 % (0-14.5); WHITE BLOOD COUNT 6.9 10*3/uL (4.8-10.8)
[2018-04-24 07:02] LABS: ALBUMIN 3.5 gm/dl (3.1-4.5); CREATININE 1.2 mg/dL (0.55-1.02); PHOSPHOROUS 3.1 mg/dL (2.5-4.9); POTASSIUM 3.8 mmol/L (3.5-5.1); TOTAL PROTEIN 6.5 gm/dL (6.4-8.2)
[2018-04-24 07:08] LABS: FREE T4 0.96 ng/dl (0.76-1.46); THYROID STIM HORMONE (HS) 1.97 uIU/ml (0.358-4.75)
[2018-04-24 08:00] VITALS: BP 117/50
[2018-04-24 12:00] VITALS: BP 118/59
[2018-04-24 16:00] VITALS: BP 123/59
[2018-04-24] MEDS ORDERED: RIVASTIGMINE1 EACH T (16:04)
[2018-04-24] MEDS ORDERED: RISPERIDONE0.5 MG PO (16:04)
[2018-04-24] MEDS ORDERED: RISPERIDONE1 MG PO (16:04)
== END 2018-04-24 16:30 | disposition home health service (06) | DRG 689 ==
LOC: ED 15:17 → EDHOLD 17:51 → 4E 17:51
PROVIDERS: Emergency Medicine; Internal Medicine
DX: N39.0 Urinary tract infection, site not specified (principal); G93.41 Metabolic encephalopathy; I95.9 Hypotension, unspecified; E86.0 Dehydration; M06.9 Rheumatoid arthritis, unspecified; E83.41 Hypermagnesemia; D64.9 Anemia, unspecified; G30.9 Alzheimer's disease, unspecified; F02.80 Dementia in other diseases classified elsewhere, unspecified severity, without behavioral disturbance, psychotic disturbance, mood disturbance, and anxiety; F23 Brief psychotic disorder; Z66 Do not resuscitate; Z51.5 Encounter for palliative care; N18.3 Chronic kidney disease, stage 3 (moderate); R73.9 Hyperglycemia, unspecified; R73.03 Prediabetes; Z96.649 Presence of unspecified artificial hip joint; E66.9 Obesity, unspecified; E03.9 Hypothyroidism, unspecified; I12.9 Hypertensive chronic kidney disease with stage 1 through stage 4 chronic kidney disease, or unspecified chronic kidney disease; E78.5 Hyperlipidemia, unspecified; I25.2 Old myocardial infarction; Z90.49 Acquired absence of other specified parts of digestive tract; Z90.710 Acquired absence of both cervix and uterus; Z95.1 Presence of aortocoronary bypass graft; Z95.818 Presence of other cardiac implants and grafts; Z82.49 Family history of ischemic heart disease and other diseases of the circulatory system; Z81.2 Family history of tobacco abuse and dependence; Z81.1 Family history of alcohol abuse and dependence; Z91.041 Radiographic dye allergy status; Z91.048 Other nonmedicinal substance allergy status; Z79.899 Other long term (current) drug therapy; Z68.25 Body mass index [BMI] 25.0-25.9, adult

== ENCOUNTER 2018-04-24 16:16 | Inpatient (IN) | payer MEDICARE, OTHER ==
[~2018-04-24] VITALS: Ht 162.5 cm; Wt 70.3 kg
--- NOTE | ~2018-04-24 | PR ---
[place], [place] PROGRESS NOTE NAME: KENDRA RICE UNIT #: [id number] ROOM: 317 DOCTOR: DARREN CHAN MD BIRTHDATE: [birth year] DOS: 04/29/2018 CHIEF COMPLAINT: "Good morning." SUMMARY OF THE VISIT: The patient was attempted to be interviewed as she sat eating breakfast. She had just worked with physical therapy and walked the grijalva and seems somewhat tired upon approach. Nurses report that she did have a bad evening, however, and became physically combative and disrobed in her room requiring significant redirection. MENTAL STATUS: She was alert and oriented to self. I was unable to ascertain place or time. Her responses to me this morning were rather brief and disjointed, not always to the point. There was no agitation directed towards me, however. PLAN: At the present time is to maintain the current psychotropic regimen, engage in individual and vallecillo milieu, returning to the least restrictive environment when psychiatrically stable. DARREN CHAN MD CM:PNTRANS [id number] DARREN CHAN MD 04/29/18 0922 interface
--- NOTE | ~2018-04-24 | PR ---
[place], [place] PROGRESS NOTE NAME: KENDRA RICE UNIT #: [id number] ROOM: 317 DOCTOR: DARREN CHAN MD BIRTHDATE: [birth year] DOS: 04/27/2018 CHIEF COMPLAINT: "Good morning." SUMMARY OF THE VISIT: The patient was interviewed as she sat in the dining area. Nurses report that she again did not sleep much if anything at all. She continues to be very fearful and anxious, calling out for her mommy and daddy. At times, she is unconsolable. She continues to be very confused and disjointed and disoriented. MENTAL STATUS: She is alert and oriented to self. It is unclear if she realizes she is in the hospital. She is certainly not oriented to time. Mood does seem to still be labile. Affect remains inappropriate at times. She does process slowly and short-term memory remains problematic. PLAN: I will increase her Namenda to 5 mg b.i.d. to augment the Exelon. I will add Rozerem 8 mg at bedtime straight in an effort to get her sleeping at night. Continue to attempt to engage in individual and vallecillo milieu activity, returning to the least restrictive environment when stable. DARREN CHAN MD CM:PNTRANS [id number] DARREN CHAN MD 04/27/18 2319 interface
--- NOTE | ~2018-04-24 | PR ---
[place], [place] PROGRESS NOTE NAME: KENDRA RICE UNIT #: [id number] ROOM: 317 DOCTOR: DARREN CHAN MD BIRTHDATE: [birth year] DOS: 04/30/2018 INTERVAL NOTE CHIEF COMPLAINT: "Morning." SUMMARY OF THE VISIT: The patient was interviewed as she was resting in bed. She awoke easily and engaged in brief superficial conversation, reporting no complaints. She reported to me that she slept well last night, had breakfast. She could not remember anything she had and then was rather dismissive of me after that. MENTAL STATUS: She is alert and oriented to person, possibly place, not to time. Mood does seem to be slightly trending towards euthymia. Affect is more appropriate. There is no lucero or hypomania. There are no gross psychotic symptoms. Short term memory still is problematic. PLAN: I will renew her p.r.n. Ativan in case she requires intervention. Continue her current psychotropics, engage in individual and vallecillo milieu activities, returning then to the least restrictive environment when stable. DARREN CHAN MD CM:PNTRANS [id number] 15 DARREN CHAN MD 04/30/182114 interface
--- NOTE | ~2018-04-24 | WRIGHTHP ---
[place], [place] PATIENT HISTORY AND PHYSICAL EXAM NAME: KENDRA RICE UNIT #: [id number] ROOM: 317 DOCTOR: DARREN CHAN MD BIRTHDATE: [birth year] DOS: 04/25/2018 INITIAL PSYCHIATRIC EVALUATION CHIEF COMPLAINT: "I don't know why I'm here." HISTORY OF PRESENT ILLNESS: This is a 77-year-old white female who was initially admitted to the medical floor due to metabolic encephalopathy due to a UTI. The patient had previously been residing at [facility], but was very labile and impulsive there. She was throwing her feces at staff, smearing feces on the wall, verbally and physically aggressive, very confused and disoriented, yelling out nonstop and disrupting the vallecillo milieu. She is now admitted to the [facility] to rule out any further organic factors to stabilize on medication and to determine the least restrictive environment to which she could return. PAST MEDICAL HISTORY: Remarkable for chronic kidney disease stage 3, coronary artery disease, hypertension, hyperlipidemia, hypothyroidism, prediabetes, and rheumatoid arthritis. SOCIAL HISTORY: She does not drink alcohol, use illicit drugs or smoke tobacco. ALLERGIES: She lists allergies to SHRIMP, IODINE and IVP DYE. STRENGTHS: Good verbal skills and ambulatory. WEAKNESSES: Cognitive decline. MENTAL STATUS: She is alert and oriented to person, not necessarily place or time. Mood does seem to be somewhat down and depressed with anxious overtones. There is no lucero or hypomania. Unclear whether or not there is a delusional system present. Short term memory remains problematic. DIAGNOSES: Intermittent explosive disorder and Alzheimer's dementia. PLAN: I have already started her on Exelon patch 4.6 mg a day. I will increase this to 9.5 mg a day, targeting a 13.3 mg a day dose, and augment with Namenda 5 mg daily, targeting 20 mg a day. Routine screening examinations revealed her vitamin D level to be mildly low at 29.6. I will augment with vitamin D 50,000 International Units weekly, engage in individual and vallecillo milieu activity, returning then to the least restrictive environment when psychiatrically stable. [place], [place] PATIENT HISTORY AND PHYSICAL EXAM NAME: KENDRA RICE UNIT #: [id number] ROOM: 317 DOCTOR: DARREN CHAN MD BIRTHDATE: [birth year] DARREN CHAN MD CM:HISPHYS:PATIENT HISTORY AND PHYSICAL EXAMINATION 2 0 DARREN CHAN MD 04/25/18 0940 interface
--- NOTE | ~2018-04-24 | PR ---
[place], [place] PROGRESS NOTE NAME: [id number] UNIT #: [id number] ROOM: 317 DOCTOR: DARREN CHAN MD BIRTHDATE: [birth year] DOS: 04/26/2018 INTERVAL NOTE CHIEF COMPLAINT: "Who will help me get home." SUMMARY OF THE VISIT: The patient was interviewed as she was sitting in the group therapy room. She engaged readily in superficial conversation. She could not tell me how long she had been here or if she had breakfast. She was rather short and simple with her responses, pleasant though, confused, disjointed. She was somewhat fretful and worrisome about being able to get home. MENTAL STATUS: She is alert and oriented with time gaps. Mood does seem to be depressed with anxious overtones. She does have some mood lability noted. There is no overt auditory or visual hallucinations at this time. Short term memory continues to be problematic. PLAN: I will go ahead and increase her Exelon patch to 13.3 mg a day and add Remeron 15 mg at bedtime. The patient does appear depressed and staff notes poor sleep and appetite overall. We will see if this impacts positively on her overall demeanor. DARREN CHAN MD CM:PNTRANS [id number] DARREN CHAN MD 04/27/18 0042 interface
--- NOTE | ~2018-04-24 | PR ---
[place], [place] PROGRESS NOTE NAME: KENDRA RICE UNIT #: [id number] ROOM: 317 DOCTOR: DARREN CHAN MD BIRTHDATE: [birth year] DOS: 04/28/2018 INTERVAL NOTE CHIEF COMPLAINT: "Good morning." SUMMARY OF THE VISIT: The patient was interviewed as she was sitting waiting for her breakfast. She engaged in brief superficial conversation. She lacks spontaneity, but did respond appropriately to questions asked to her, although she remains rather confused and disjointed. She did sleep a little better last evening, which is the first time she slept since her admission. MENTAL STATUS EXAMINATION: She is alert and oriented to person, possibly place, not time. Mood does seem to be trending towards euthymia. Affect is more appropriate. There is no lucero, hypomania or psychosis. Short term memory continues to be problematic. PLAN: I will go ahead and increase Namenda to its maximum dose of 10 mg b.i.d., augmenting the effectiveness of the Exelon patch at 13.3 mg daily. Maintain her other psychotropics, continue to engage in individual and vallecillo milieu activity, returning then to the least restrictive environment when psychiatrically stable. DARREN CHAN MD CM:PNTRANS 8 [phone] DARREN CHAN MD 04/28/181938 interface
--- NOTE | ~2018-04-24 | DS ---
[place], [place] DISCHARGE SUMMARY [id number] UNIT #: [id number] ROOM: 317 DOCTOR: DARREN CHAN MD BIRTHDATE: [birth year] DOS: 05/02/2018 CHIEF COMPLAINT: "I don't know why I am here." HISTORY OF PRESENT ILLNESS: This is a 77-year-old white female who was initially admitted to the medical floor at [facility] due to metabolic encephalopathy secondary to a UTI. The patient had previously been residing at [facility], but was very labile and extremely impulsive. She was throwing feces at staff, smearing feces on the wall. She was verbally and physically aggressive, very confused and disoriented. At times, she would yell out nonstop both morning and night disrupting the entire [place] milieu. She is now admitted to the [facility] to rule out further organic factors, to stabilize on medication and to determine the least restrictive environment to which she could return. PAST MEDICAL HISTORY: Remarkable for chronic kidney disease stage 3, coronary artery disease, hypertension, hyperlipidemia, hypothyroidism, prediabetes, and rheumatoid arthritis, she does not drink alcohol, use illicit drugs or smoke cigarettes. ALLERGIES: SHE LISTS TO SHRIMP, IODINE AND IVP DYE. STRENGTHS: Good verbal skills and ambulatory. WEAKNESSES: Cognitive decline. SUMMARY OF HOSPITAL COURSE: The patient was admitted to the psychiatric unit where she was started on Exelon patch 4.6 mg a day in order to maximize the potential to improve or maintain ADLs, behavior and cognition. Namenda was started at 5 mg a day simultaneously. The dose of both of these agents was gradually increased to their maximum dose of Exelon patch 13.3 mg a day and Namenda 10 mg twice daily. Routine screening examination showed her to have a mildly low vitamin D level of 29.6, which was augmented with vitamin D 50,000 international units weekly. Because of her extreme mood lability. The patient was also started on Risperdal 0.5 in the morning and 1 mg at bedtime and this was maintained through her stay. There were a depressive component that was quite evident with poor sleep and appetite, voicing of sadness and despair. Remeron was added to improve sleep and appetite and combat depression with good results. The patient gradually improved to the point where the problematic behavior ceased. She was much more pleasant and cooperative. She remained confused and disoriented, but was able to be redirected and was no longer putting herself or others at risk for harm. Given the severity of her wandering behavior. It was felt that a locked unit was necessary. So the patient was eventually admitted to [facility] in [place], [place]. MENTAL STATUS AT DISCHARGE: She remains alert and oriented to self only, unclear place, certainly not time. Mood was more euthymic. Affect appropriate. There is no lucero, hypomania or psychosis. Short term memory continued to be problematic. Otherwise, she was intact. [place], [place] DISCHARGE SUMMARY NAME: KENDRA RICE UNIT #: [id number] ROOM: 317 DOCTOR: DARREN CHAN MD BIRTHDATE: [birth year] FINAL DIAGNOSES: Major depression, recurrent with psychotic features and Alzheimer's dementia. DISPOSITION: The patient is being admitted to [facility]. Her prescriptions have been printed and will be sent with her. She is medically and psychiatrically stable and her biopsychosocial needs are adequately being met by the facility. DARREN CHAN MD CM:DISCHSTEPHANIE [id number] DARREN CHAN MD 05/02/18 1707 interface
[~2018-04-24 16:16] MED LIST changes: +DOCUSATE SODIU100 M2 PO; +GEODON20 M1 IM; +RISPERIDONE0.5 MG PO; +RISPERIDONE1 MG PO; +RIVASTIGMINE1 EACH T
[2018-04-24 16:51] VITALS: BP 167/72
[2018-04-24 17:15] VITALS: BP 167/72
[2018-04-24 20:00] VITALS: BP 141/58
[2018-04-25 07:31] LABS: BASO # 0.1 10*3/uL (0.0-0.1); BASO % 0.9 % (0.0-1.0); EOS # 0.3 10*3/uL (0.0-0.4); EOS % 4.8 % (1.0-4.0); HEMATOCRIT 35.2 % (37.0-47.0); HEMOGLOBIN 11.4 g/dl (12.0-16.0); LYMPH # 2.3 10*3/uL (1.3-4.4); LYMPH % 40.1 % (27.0-41.0); MEAN CELL VOLUME 92.6 fl (81.0-99.0); MEAN CORPUSCULAR HGB CONC 32.4 g/dl (33.0-37.0); MEAN PLATELET VOLUME 9.4 fl (9.6-12.3); MONO # 0.5 10*3/uL (0.1-1.0); MONO % 8.9 % (3.0-9.0); NEUT # 2.5 10*3/uL (2.3-7.9); NEUT % 45.1 % (47.0-73.0); PLATELET COUNT AUTOMATED 182 10*3/uL (130-400); RED CELL DISTRI WIDTH 13.2 % (0-14.5); WHITE BLOOD COUNT 5.6 10*3/uL (4.8-10.8)
[2018-04-25 07:37] VITALS: BP 136/60
[2018-04-25 08:03] LABS: ALBUMIN 3.3 gm/dl (3.1-4.5); POTASSIUM 3.9 mmol/L (3.5-5.1)
[2018-04-25 08:16] LABS: CREATININE 1.12 mg/dL (0.55-1.02); THYROID STIM HORMONE (HS) 4.51 uIU/ml (0.358-4.75); TOTAL PROTEIN 6.3 gm/dL (6.4-8.2)
[2018-04-25 08:51] LABS: VITAMIN D, 25-HYDROXY 29.6 ng/mL (30-100)
[2018-04-25 19:58] VITALS: BP 140/71
[2018-04-26 07:29] VITALS: BP 148/72
[2018-04-26 20:00] VITALS: BP 148/88
[2018-04-27 07:35] VITALS: BP 125/68
[2018-04-27 19:17] VITALS: BP 126/60
[2018-04-28 08:02] VITALS: BP 129/67
[2018-04-28 19:48] VITALS: BP 125/65
[2018-04-29 07:37] VITALS: BP 123/68
[2018-04-29 20:10] VITALS: BP 116/67
[2018-04-30 07:41] VITALS: BP 120/67
[2018-04-30 19:09] VITALS: BP 110/76
[2018-05-01 07:57] VITALS: BP 149/74
[2018-05-01 19:41] VITALS: BP 151/64
[2018-05-02 07:48] VITALS: BP 145/78
[2018-05-02] MEDS ORDERED: MIRTAZAPINE15 M2 PO (08:51)
[2018-05-02] MEDS ORDERED: MEMANTINE HCL10 MG PO (08:51)
[2018-05-02] MEDS ORDERED: RISPERIDONE0.5 MG PO (08:51)
[2018-05-02] MEDS ORDERED: Vitamin D PO (08:51)
[2018-05-02] MEDS ORDERED: EXELON13.3 MG/21 T (08:51)
[2018-05-02] MEDS ORDERED: RISPERIDONE1 MG PO (08:51)
[2018-05-02] MEDS ORDERED: ROZEREM8 MG PO (08:51)
== END 2018-05-02 11:28 | disposition other institution (70) | DRG 883 ==
LOC: 3N 16:16
PROVIDERS: Psychiatry & Neurology Psychiatry
DX: F63.81 Intermittent explosive disorder (principal); F33.3 Major depressive disorder, recurrent, severe with psychotic symptoms; G30.9 Alzheimer's disease, unspecified; M06.9 Rheumatoid arthritis, unspecified; F02.81 Dementia in other diseases classified elsewhere, unspecified severity, with behavioral disturbance; I25.810 Atherosclerosis of coronary artery bypass graft(s) without angina pectoris; E03.9 Hypothyroidism, unspecified; E66.3 Overweight; E78.5 Hyperlipidemia, unspecified; R73.03 Prediabetes; N18.3 Chronic kidney disease, stage 3 (moderate); Z96.649 Presence of unspecified artificial hip joint; I12.9 Hypertensive chronic kidney disease with stage 1 through stage 4 chronic kidney disease, or unspecified chronic kidney disease; Z91.041 Radiographic dye allergy status; Z88.8 Allergy status to other drugs, medicaments and biological substances; Z91.048 Other nonmedicinal substance allergy status; I25.2 Old myocardial infarction; Z90.49 Acquired absence of other specified parts of digestive tract; Z90.710 Acquired absence of both cervix and uterus; Z95.1 Presence of aortocoronary bypass graft; Z82.49 Family history of ischemic heart disease and other diseases of the circulatory system; Z79.82 Long term (current) use of aspirin; Z79.899 Other long term (current) drug therapy; Z68.26 Body mass index [BMI] 26.0-26.9, adult